=== PATIENT | male | born 1965 | race Caucasian/White ===

== ENCOUNTER 2019-04-21 18:54 | Inpatient (IN) | payer BC ==
[~2019-04-21] VITALS: Ht 182.9 cm; Wt 90.9 kg
[2019-04-21 20:27] LABS: MUCOUS Present /lpf; PH 5 (5-8); SQUAMOUS EPITHELIAL None Seen /hpf; URINE APPEARANCE Hazy; URINE BACTERIA None Seen /hpf; URINE BILIRUBIN Negative (NEGATIVE); URINE BLOOD 1+ (NEGATIVE); URINE COLOR Amber; URINE GLUCOSE Negative (NEGATIVE); URINE KETONE 1+ (NEGATIVE); URINE LEUKOCYTE ESTERASE Negative (NEGATIVE); URINE NITRATE Negative (NEGATIVE); URINE PROTEIN(semi-quant) Negative (NEGATIVE); URINE RBC 0-2 /hpf; URINE UROBILINOGEN >=4.0 mg/dL (NEGATIVE)
[2019-04-21 20:43] VITALS: BP 153/87; PULSE 87; TEMP 100
[2019-04-21 20:56] LABS: BASO % 0.2 % (0.0-2.0); EOS % 0.1 % (0-4.0); GRAN # 11.3 (1.4-6.5); GRAN % 85.2 % (42.2-75.2); HEMATOCRIT 45.2 % (42.0-52.0); HEMOGLOBIN 15.3 g/dl (13.5-18.0); LYMPH # 0.7 (1.2-3.4); LYMPH % 5.1 % (20.0-51.0); MEAN CELL VOLUME 83 fl (80.0-100.0); MEAN CORPUSCULAR HEMOGLOBIN 28 pg (27.0-31.0); MEAN CORPUSCULAR HGB CONC 34 g/dl (33.0-37.0); MEAN PLATELET VOLUME 10.8 fl (7.4-10.4); MONO # 1.2 (0.1-0.6); MONO % 9.1 % (1.7-9.3); PLATELET COUNT 185 K/mm3 (130-400); RED BLOOD COUNT 5.42 M/mm3 (4.20-5.60)
[2019-04-21 21:10] LABS: ALBUMIN 4.3 gm/dL (3.5-5.0); BILIRUBIN,TOTAL 1.9 mg/dL (0.0-1.0); CALCIUM 9.2 mg/dL (8.4-10.2); CREATININE, serum 0.9 (0.66-1.25); TOTAL PROTEIN 7.9 gm/dL (6.4-8.2)
[2019-04-21 21:28] LABS: COLLECTION METHOD CLEAN CATCH
[2019-04-21] MEDS ORDERED: PERCOCET 325 MG1 TA2 PO (21:41)
[2019-04-21] MEDS ORDERED: LOPRESSOR 225 MG/TAB PO (21:42)
[2019-04-21] MEDS ORDERED: OMEGA-3 1000 MG1 CAP PO (21:43)
[2019-04-21] MEDS ORDERED: ASPIRIN 81M81 MG/TA2 PO (21:44)
[2019-04-21] MEDS ORDERED: LIPITOR 10MG10 MG PO (21:44)
[2019-04-21] MEDS ORDERED: AMOXICILLIN 8751 TAB PO (21:45)
[2019-04-22 00:47] VITALS: BP 110/56; PULSE 59; TEMP 98.2
[2019-04-22 04:22] VITALS: BP 130/71; PULSE 67; TEMP 98.1
[2019-04-22 07:55] VITALS: BP 132/68; PULSE 77; TEMP 98.1
--- NOTE | 2019-04-22 09:05 | NUR ---
Patient has been resting in bed watching telvision this morning. Patient is alert and oriented, answers questions appropriately. Patient is independent in room. Patient denies pain at this time. IVF infusing per order. Fluids disconnected in order for patient to be transported to MRI via WC. Patient denies needs at this time, call light within reach.
--- NOTE | 2019-04-22 11:37 | NUR ---
Landing Worker met with patient to discuss discharge planning. Patient lives in [place] with his , Uma ([phone]) and is a almeida/rancher. Patient sees Dr. Delma Ramirez for primary care. Patient obtains medications from either [facility] in [place] or [facility] in [place] with no difficulties. Patient does not use any DME and is independent with ADLS. Patient was unsure if he has DPO[facility] in place and was interested in obtaining form. SW provided. Patient plans to return home upon discharge. No additional needs at this time.
[2019-04-22 11:54] VITALS: BP 124/73; PULSE 69; TEMP 98.1
--- NOTE | 2019-04-22 12:11 | NUR ---
First visit from the business specialist. No needs right now.
[2019-04-22 16:10] VITALS: BP 133/69; PULSE 72; TEMP 98.4
--- NOTE | 2019-04-22 19:30 | NUR ---
Takes shower at this time.
--- NOTE | 2019-04-22 21:00 | NUR ---
Pt back in bed, IVF reconnected to left wrist, site without redness or swelling. Is alert and oriented x4. IV antibiotic infusing without problem. Denies pain, has KPAD for comfort. Pt to have gallbladder surgery tomorrow afternoon and will be NPO after 0600.
[2019-04-22 21:17] VITALS: BP 122/59; PULSE 63; TEMP 98.6
--- NOTE | 2019-04-22 22:08 | NUR ---
Home given for sleep.
[2019-04-23] VITALS (10 sets, daily range): BP systolic 109–157; BP diastolic 66–83; PULSE 52–67; TEMP 97.9–98.7
--- NOTE | 2019-04-23 06:00 | NUR ---
Pt continues to deny pain this shift. Will be NPO for surgery this afternoon.
[2019-04-23 07:17] LABS: BASO % 0.4 % (0.0-2.0); EOS # 0.1 (0.0-0.7); EOS % 2.1 % (0-4.0); GRAN # 3.6 (1.4-6.5); HEMATOCRIT 37.9 % (42.0-52.0); LYMPH # 0.7 (1.2-3.4); LYMPH % 13.9 % (20.0-51.0); MEAN CELL VOLUME 86 fl (80.0-100.0); MEAN CORPUSCULAR HEMOGLOBIN 29 pg (27.0-31.0); MEAN CORPUSCULAR HGB CONC 34 g/dl (33.0-37.0); MEAN PLATELET VOLUME 11.4 fl (7.4-10.4); MONO # 0.8 (0.1-0.6); MONO % 15.4 % (1.7-9.3); PLATELET COUNT 179 K/mm3 (130-400); RED BLOOD COUNT 4.41 M/mm3 (4.20-5.60); REDCELL DISTRIBUTION WIDTH-CV 12.2 % (11.5-14.5)
--- NOTE | 2019-04-23 07:29 | NUR ---
Lying in bed with eyes open. Denies pain or nausea at this time. Reviewed consent with the patient for procedure. Questions answered. Consent signed. Denies needs at this time.
[2019-04-23 07:33] LABS: ALBUMIN 3.4 gm/dL (3.5-5.0); BILIRUBIN,TOTAL 0.9 mg/dL (0.0-1.0); CALCIUM 8.4 mg/dL (8.4-10.2); POTASSIUM 3.9 mmol/L (3.4-5.0); TOTAL PROTEIN 6.6 gm/dL (6.4-8.2)
[2019-04-23 07:36] LABS: HEMOGLOBIN 12.8 g/dl (13.5-18.0)
--- NOTE | 2019-04-23 11:40 | NUR ---
Initial visit; Patient thanked Ditch Cleaner for looking in on him and offering God's blessings.
--- NOTE | 2019-04-23 11:48 | NUR ---
Lying in bed watching TV. Denies pain or any concerns at this time. Remains NPO for surgical procedure this afternoon.
--- NOTE | 2019-04-23 13:48 | NUR ---
Johnny with surgery department here to transport patient to surgery via bed. Family in room with the patient and they will go to surgery waiting room.
--- NOTE | 2019-04-23 16:00 | NUR ---
Patient to room via bed by PACU staff. Rates pain 5/10 in abd and describes as achy. Having small amount of nausea. Lap sites x4 on abd with bandaids CDI. Family in room with the patient.
--- NOTE | 2019-04-23 18:30 | NUR ---
IV to left hand dc'd. Applied 2x2 to site and reinforced with coban. Reviewed all discharge instructions with the patient and his . Questions answered. Patient signs discharge paperwork. Discharge packet provided to the patient.
--- NOTE | 2019-04-23 18:37 | NUR ---
Patient ambulates out to [facility] with Shanelle, GOLF PROFESSIONAL, and his family. All personal belongings returned to the patient.
== END 2019-04-23 18:37 | disposition home or self-care (01) | DRG 419 ==
LOC: SURG 18:54
PROVIDERS: ADMIT Surgery
PROC: BF131ZZ Fluoroscopy of Gallbladder and Bile Ducts using Low Osmolar Contrast (ICD-10-PCS; 2019-04-23)
PROC: 0FT44ZZ Resection of Gallbladder, Percutaneous Endoscopic Approach (ICD-10-PCS; principal; 2019-04-23 14:00)
DX: K80.00 Calculus of gallbladder with acute cholecystitis without obstruction (principal); I10 Essential (primary) hypertension; E78.00 Pure hypercholesterolemia, unspecified
CPT/HCPCS: J1170; J1885; J2405; J2543; J2704; J3010; J3480; J7120; Q9967